=== PATIENT | female | born 1940 | race Caucasian/White ===

== ENCOUNTER 2017-03-10 09:14 | Inpatient (IN) | payer OTHER ==
[2017-02-24 10:30] VITALS: BMI 37.0
--- NOTE | 2017-02-24 11:12 | PAT Medication Instructions ---
Service Date Feb 24, 2017. Current Home Medication List Acetaminophen (Tylenol), 2 TAB PO DAILY PRN for Pain Aspirin (Aspirin Ec), 81 MG PO QAM Calcium/Vitamin D (Os-Lee 500 Plus D), 1 TAB PO QAM Celecoxib (CeleBREX), 1 CAP PO BID PRN for Pain Levothyroxine Sodium (Levothyroxine Sodium), 1 TAB PO QAM Metoprolol Succ (Toprol Xl) (Toprol-Xl), 25 MG PO BID Mirabegron (Myrbetriq Er), 25 MG PO QPM Ondansetron Hcl (Zofran), 8 MG PO Q8 PRN for Nausea Potassium Chloride (Micro-K Ext Rel), 10 MEQ PO QAM Telmisartan/Hctz (Micardis Hct 80MG/12.5MG), 1 TAB PO QAM Medication Instructions For Your Scheduled Surgery - Check with surgeon for instructions: Celecoxib (CeleBREX), 1 CAP PO BID PRN for Pain - Hold the following medications the morning of surgery: Telmisartan/Hctz (Micardis Hct 80MG/12.5MG), 1 TAB PO QAM Potassium Chloride (Micro-K Ext Rel), 10 MEQ PO QAM - Take the following medications the morning of surgery with a sip of water: Acetaminophen (Tylenol), 2 TAB PO DAILY PRN for Pain (if needed) Aspirin (Aspirin Ec), 81 MG PO QAM Levothyroxine Sodium (Levothyroxine Sodium), 1 TAB PO QAM Metoprolol Succ (Toprol Xl) (Toprol-Xl), 25 MG PO BID Ondansetron Hcl (Zofran), 8 MG PO Q8 PRN for Nausea (if needed) - Take the following medications as scheduled the night before surgery: Calcium/Vitamin D (Os-Lee 500 Plus D), 1 TAB PO QAM Metoprolol Succ (Toprol Xl) (Toprol-Xl), 25 MG PO BID Mirabegron (Myrbetriq Er), 25 MG PO QPM Ondansetron Hcl (Zofran), 8 MG PO Q8 PRN for Nausea (if needed) Acetaminophen (Tylenol), 2 TAB PO DAILY PRN for Pain (if needed) If you have any questions please call us at [phone] or [phone] or [phone]
--- NOTE | 2017-02-24 12:12 | DIAGNOSTIC IMAGING REPORT ---
CHEST PREADMISSION(PA/LAT) CLINICAL HISTORY: Preoperative evaluation. COMPARISON STUDY: No previous studies for comparison. FINDINGS: Lung volumes are normal normal. No pneumothorax or pleural effusion is present. There is slight elevation/eventration of the right hemidiaphragm. Mild interstitial thickening, greater within the right lung, is noted. There is no consolidation to suggest pneumonia and there is no evidence of pulmonary edema. Mild cardiomegaly is noted. There is prominence of the aortic knob. IMPRESSION: 1. No acute cardiopulmonary findings. 2. Mild interstitial thickening, greater within the right lung. The findings are likely chronic and may reflect interstitial lung disease. 3. Mild cardiomegaly. 4. Prominence of the aortic knob which could be due to vessel tortuosity or dilatation. Electronically signed by: Hunter Moreira M.D. 02/24/2017 12:11 PM Dictated Date/Time: 02/24/2017 12:09 PM
[2017-02-24 12:17] LABS: BASO % 0.3 %; BASO ABS # 0.02 K/uL (0-0.2); COMPLETE YES; EOS % 3.4 %; HEMATOCRIT 44.9 % (37-47); IG% 0.1 %; LYMPH % 30.3 %; LYMPH ABS # 2.41 K/uL (1.2-3.4); MEAN CELL VOLUME 92.6 fL (80-100); MEAN CORPUSCULAR HEMOGLOBIN 31.1 pg (25-34); MEAN CORPUSCULAR HGB CONC 33.6 g/dl (32-36); MEAN PLATELET VOLUME 10.1 fL (7.4-10.4); MONO % 5.9 %; PLATELET COUNT 270 K/uL (130-400); RED BLOOD COUNT 4.85 M/uL (4.2-5.4); WHITE BLOOD COUNT 7.96 K/uL (4.8-10.8)
[2017-02-24 12:25] LABS: URINE APPEARANCE CLEAR (CLEAR); URINE BILIRUBIN NEG (NEG); URINE COLOR YELLOW; URINE NITRITE NEG (NEG); URINE SPECIFIC GRAVITY 1.011 (1.000-1.030); UROBILINOGEN NEG (NEG)
[2017-02-24 12:29] LABS: PARTIAL THROMBOPLASTIN RATIO 1.1; PROTHROMBIN TIME (PATIENT) 10.3 SECONDS (9.0-12.0)
[2017-02-24 12:32] LABS: MANUAL MICROSCOPIC REQUIRED? NO; REVIEW REQ? NO
[2017-02-24 12:53] LABS: BUN/CREATININE RATIO 19.2 (10-20); CALCIUM 9.5 mg/dl (8.5-10.1); CREATININE 1.1 mg/dl (0.60-1.20); POTASSIUM 4.2 mmol/L (3.5-5.1)
[2017-02-24 13:07] LABS: ESTIMATED AVERAGE GLUCOSE 128 mg/dl; HA1C FLAG Normal (Normal)
--- NOTE | 2017-03-09 10:09 | HISTORY & PHYSICAL EXAMINATION ---
DATE OF ADMISSION: 03/10/2017 CHIEF COMPLAINT: Left knee pain. HISTORY OF PRESENT ILLNESS: The patient is a 76-year-old female seen and evaluated in our office for her left knee osteoarthritis. She has been treated for her left knee by her primary care physician. She was essentially referred to us for consideration for total knee arthroplasty. Her x-rays demonstrate end-stage osteoarthritis and the decision was made to proceed with left total knee arthroplasty. PAST MEDICAL HISTORY: Hypertension, hypothyroidism, osteoarthritis, obesity. PAST SURGICAL HISTORY: Appendectomy, hysterectomy, cataract surgery. MEDICATIONS: Myrbetriq 25 mg daily, levothyroxine 75 mcg daily, Micardis HCT 80/12.5 daily, Advil p.r.n., metoprolol 25 mg twice daily, aspirin 81 mg daily, KCl 10 mEq daily. ALLERGIES: STATINS CAUSE MYALGIAS. SOCIAL HISTORY AND REVIEW OF SYSTEMS: Noncontributory. PHYSICAL EXAMINATION: GENERAL: Well-nourished, well-developed elderly female who appears her stated age. HEAD, EYES, EARS, NOSE, AND THROAT: Normocephalic, atraumatic, extraocular movements intact, oropharynx pink and moist. NECK: Supple without adenopathy. LUNGS: Clear to auscultation bilaterally. HEART: Regular rate and rhythm. ABDOMEN: Soft, nontender, nondistended, obese. EXTREMITIES: The upper extremities are within normal limits. The left knee has a varus alignment. She complains primarily of medial compartment pain. Her range of motion from 0-120 degrees. X-RAYS: X-rays were reviewed. She has a varus aligned knee. She has tricompartmental disease. She has severe medial compartment DJD with complete loss of the joint space, osteophyte formation. She has moderate degenerative change about the patellofemoral joint with osteophyte formation as well. ASSESSMENT: Left knee degenerative joint disease. PLAN: Risks versus benefits were discussed. Consent was obtained. The patient's primary care physician is Dr. Monterroso. Will proceed with left total knee arthroplasty upon preoperative workup and medical clearance.
[~2017-03-10] VITALS: Ht 157.5 cm; Wt 92.3 kg
[2017-03-10] VITALS (9 sets, daily range): BP systolic 122–178; BP diastolic 56–107; PULSE 64–90; TEMP 36.5–36.9; O2SAT 92–97; Ht 157.5 cm; Wt 92.3 kg
[2017-03-10] MEDS: TRANEXAMIC ACID INJ 1,000 MG in SODIUM CHLORIDE 0.9% 100ML 100 ML IV SCH ×2 (06:30→10:33)
--- NOTE | 2017-03-10 07:25 | History & Physical Bridge Note ---
H&P Re-Evaluation Bridge Note: I have examined the patient, reviewed the History & Physical and in the interval since the performance of the History & Physical I have noted the following changes of clinical significance: No changes noted
[~2017-03-10 09:14] MED LIST: ACET-1256 PO; ACETAMINOPHEN 500 MG TAB PO SCH; ASPI81TA28 PO; CALC500C70 PO; CEFAZOLIN 2000 MG/60 ML D5W 60 ML IV SCH; CLB/200 PO; CeleBREX 200 MG CAP PO SCH; DEXAMETHASONE 4 MG TAB PO SCH; FAMOTIDINE 20 MG TAB PO SCH; GABAPENTIN 300 MG CAP PO SCH; LACTATED RINGER'S 1000ML 1,000 ML IV SCH; LACTATED RINGER'S 1000ML 500 ML IV ONE; LEVO75TA5 PO; METO25TA3 PO; METOCLOPRAMIDE HCL 10 MG TAB PO SCH; MIRA100T PO; ONDA8TAB6 PO; POTA10CA28 PO; ROPIVACAINE 5MG/ML 30 ML 150 MG, BUPIVACAINE/EPINEPHR 0.5% MPF 30 ML, KETOROLAC TROMETH... INFIL SCH; TELM80TA4 PO
[2017-03-10] MEDS ORDERED: MIDAZOLAM HCL 1 MG/ML 2ML VIAL ONE (09:23)
[2017-03-10] MEDS ORDERED: FENTANYL CITRATE INJ 50 MCG/1 ML 2 ML VIAL ONE (09:23)
[2017-03-10] MEDS ORDERED: FLUMAZENIL 0.1 MG/1 ML 10 ML VIAL IV PRN (10:30)
[2017-03-10] MEDS ORDERED: FENTANYL CITRATE INJ 50 MCG/1 ML 2 ML VIAL IV PRN (10:30)
[2017-03-10] MEDS ORDERED: PHENYLEPHRINE 100MCG/ML 5ML SYR IV PRN (10:30)
[2017-03-10] MEDS ORDERED: ONDANSETRON INJ 2 MG/ML 2 ML VIAL IV PRN (10:30)
[2017-03-10] MEDS ORDERED: EpHEDrine SULFATE INJ 50 MG/ML AMP IV PRN (10:30)
[2017-03-10] MEDS ORDERED: NALOXONE HCL 0.4 MG/1 ML VIAL/CARP IV PRN (10:30)
[2017-03-10] MEDS ORDERED: MEPERIDINE HCL 25 MG/ML CARP IV PRN (10:30)
[2017-03-10] MEDS ORDERED: LABETALOL HCL IV 5 MG/ML 20ML IV PRN (10:30)
[2017-03-10] MEDS ORDERED: ATROPINE SULFATE 0.1 MG/ML 5ML SYR IV PRN (10:30)
[2017-03-10] MEDS ORDERED: HYDROmorphone INJ 2 MG/ML SYR/VIAL IV PRN (10:30)
[2017-03-10] MEDS ORDERED: BACITRACIN 50000 UNIT VIAL ONE (10:34)
[2017-03-10] MEDS ORDERED: ORTHO JOINT ANESTHETIC ONE (10:34)
[2017-03-10] MEDS ORDERED: POVIDONE-IODINE OP SOLN 30 ML BTL ONE (10:34)
[2017-03-10] MEDS ORDERED: EpINEphrine INJ 1MG/ML AMP 1 MG/ML AMP ONE (10:42)
[2017-03-10] MEDS ORDERED: BUPIVACAINE 0.5 % 5 MG/1 ML PF 10ML VIAL ONE (10:42)
[2017-03-10] MEDS ORDERED: BUPIVACAINE 0.25% 30 ML VIAL ONE (10:42)
[2017-03-10] MEDS ORDERED: PROPOFOL IV EMULSION 10 MG/ML 20 ML VIAL IV ONE (11:33)
[2017-03-10] MEDS ORDERED: ALUMINUM/MAGNESIUM/SIMETH (MAALOX MAX) 30 ML UDC PO PRN (13:00)
[2017-03-10] MEDS ORDERED: ZOLPIDEM TARTRATE 5 MG TAB PO PRN (13:00)
[2017-03-10] MEDS ORDERED: MAGNESIUM HYDROXIDE SUSP 30 ML UDC PO PRN (13:00)
[2017-03-10] MEDS ORDERED: OXYCODONE HCL IR 5 MG TAB (IMMEDIATE RELEASE) PO PRN (13:00)
[2017-03-10] MEDS ORDERED: MoRPHine SULFATE 2 MG/ML CARP IV PRN ×2 (13:00→14:15)
[2017-03-10] MEDS ORDERED: LABETALOL HCL IV 5 MG/ML 20ML IV ONE ×2 (13:20→13:46)
--- NOTE | 2017-03-10 13:54 | OPERATIVE REPORT ---
DATE OF OPERATION: 03/10/2017 PREOPERATIVE DIAGNOSIS: Osteoarthritis, left knee. POSTOPERATIVE DIAGNOSIS: Osteoarthritis, left knee. PROCEDURE: Left total knee arthroplasty. SURGEON: Dr. Cooper. VP [employer]: Vitaily Medina PA-C ANESTHESIA: Spinal. COMPLICATIONS: None. IMPLANTS USED: Femoral size 4, tibia size 3, tibial poly 13, and patella size 36. OPERATION AND FINDINGS: Following induction of spinal anesthesia, the patient's left leg was prepped and draped in the usual sterile manner. Limb was exsanguinated with an Esmarch bandage and tourniquet was inflated to 350 mmHg. A longitudinal incision was made anteriorly. Subcutaneous tissue was sharply dissected. Electrocautery was used for hemostasis. Prepatellar bursa was incised and median parapatellar incision was performed. Patella was everted and the knee was flexed. Fat pad was removed to aid in visualization and the anterior and posterior cruciate ligaments were removed. The medial face of the tibia was cleared of soft tissue first with a Bovie and a Duke elevator. This tissue was retracted posteriorly using a blunt Hohmann. A Up retractor was used to expose the synovium above on the anterior aspect of the femur and this was removed down to bone. The PSI guide was placed on the distal femur and two pins were placed anteriorly and kept in position and two additional pins were placed distally and removed. The distal femoral cutting block was placed in position and the distal femoral cut was used in the +0 setting. Next, the cutting block was removed and the femoral 4 block was placed in the distal end of the femur. Care was taken to ensure appropriate external rotation and feeler gauge was used to ensure no notching would occur. The femoral block was centered on the distal femur and in the medial and lateral direction and was fixed using two bone screws. The gold pins were then removed. The oscillating saw was used to create the bone cuts and the distal femoral cutting block was removed and the reciprocating saw was used to further trim the femoral cuts as well as a deep in the area for the trochlear groove. Next, posterior condyle remnants were removed. Following this, a meniscal clamp and knife were utilized to remove the anterior portion of both medial and lateral meniscus. The proximal tibia PSI guide was placed into position and the proximal tibial cutting guide was screwed into position. The extra medullary alignment guide was utilized to ensure appropriate alignment. The proximal tibia was cut and the proximal tibial cutting block was removed and this bone fragment was removed. The appropriate guide was used to perform the notch cut on the distal femur and a lamina controller repairer and tester and a cochlear knife were utilized to finish both medial and lateral meniscectomies to remove any remnants of the posterior or anterior cruciate ligaments. Following this, the distal femoral component was impacted into position and blunt Julissa was used to sublux the tibia anteriorly. The proximal tibia was sized and a 3 tibial tray was chosen as the size to be used. This was put into position and appropriate external rotation and a double check with extramedullary alignment guide was performed. The canal for the tibial stem was prepared first with a 17 mm drill and then the punch and a mallet and the trial tibial poly was placed. A 13 was chosen the size to be used. It was brought to extension and the patella was prepared with the patellar reamer. A 36 component was chosen the size to be used. The trial component was placed and knee was taken through a full range of motion and there was found to be no lateral subluxation of the tibia. No lateral release was required. The trials were all removed. The final components were obtained and assembled. Cement was mixed. The knee was thoroughly irrigated and the ortho mix was injected about the knee joint. The final components were cemented into position. After thoroughly suctioning and drying the bone ends, all excess cement was removed. The knee was held in extension while the cement hardened. The wound was irrigated and closed over a Hemovac drain. #1 Vicryl was used to close the extensor mechanism. Subcutaneous tissues closed using 0 Dexon. Skin was closed with alanis. Sterile dressing of Adaptic, 4 x 4's, sterile Webril, and Balaji was applied. The patient tolerated the procedure well. Due to the complex nature of the procedure, the entire surgery was performed with the operational assistance of Vitaliy Medina PA-C. The asset protection assistant, under direct supervision, was involved in the actual performance of all aspects of the surgical procedure including hemostasis, tissue retraction and incision, instrument management, patient positioning, and wound closure. DISPOSITION: Recovery room stable. I attest to the content of the Intraoperative Record and any orders documented therein. Any exception s are noted below.
--- NOTE | 2017-03-10 14:13 | DIAGNOSTIC IMAGING REPORT ---
LEFT KNEE 2 VIEWS History: Left total knee arthroplasty. Degenerative arthritis. Postop. FINDINGS: The patient is status post a left total knee arthroplasty. The hardware is intact. No fracture or dislocation. Surgical drains are in place. IMPRESSION: Left total knee arthroplasty. No evidence for hardware complication. Electronically signed by: Ze Cotto M.D. 03/10/2017 2:11 PM Dictated Date/Time: 03/10/2017 2:10 PM
[2017-03-10] MEDS ORDERED: MoRPHine SULFATE 4 MG/ML 1 ML CARP\\VIAL IV PRN (14:15)
[2017-03-10] MEDS ORDERED: MoRPHine SULFATE 10 MG/ML CARP/VIAL IV PRN (14:15)
--- NOTE | 2017-03-10 14:43 | Anesthesiology Progress Note ---
Anesthesia Post Op Note Date & Time Mar 10, 2017 at 14:42 Vital Signs Pain Intensity: 0 Vital Signs Past 12 Hours Date Time Temp Pulse Resp B/P (MAP) Pulse Ox O2 Delivery O2 Flow Rate FiO2 03/10/17 14:34 66 15 03/10/17 14:34 65 15 95 03/10/17 14:31 142/73 03/10/17 14:29 69 19 95 03/10/17 14:29 70 19 03/10/17 14:26 136/73 03/10/17 14:24 69 19 96 03/10/17 14:24 69 19 03/10/17 14:21 155/79 03/10/17 14:19 68 21 03/10/17 14:19 68 21 95 03/10/17 14:18 70 15 96 03/10/17 14:18 69 15 03/10/17 14:16 141/89 03/10/17 14:13 69 18 03/10/17 14:13 69 18 95 03/10/17 14:11 153/84 03/10/17 14:09 37.1 03/10/17 14:08 68 15 95 03/10/17 14:08 68 15 03/10/17 14:07 68 14 03/10/17 14:07 69 14 95 03/10/17 14:06 158/70 03/10/17 14:02 67 18 03/10/17 14:02 66 18 96 03/10/17 14:01 164/90 03/10/17 13:57 67 15 96 03/10/17 13:57 67 15 03/10/17 13:56 165/92 03/10/17 13:54 70 16 03/10/17 13:54 70 16 03/10/17 13:54 72 16 97 03/10/17 13:54 72 16 97 03/10/17 13:51 157/83 03/10/17 13:51 157/83 03/10/17 13:49 67 16 97 03/10/17 13:49 68 16 03/10/17 13:49 68 16 03/10/17 13:49 67 16 97 03/10/17 13:48 67 22 03/10/17 13:48 67 22 95 03/10/17 13:46 157/82 03/10/17 13:43 66 13 97 03/10/17 13:43 66 13 03/10/17 13:41 174/95 03/10/17 13:38 65 15 97 03/10/17 13:38 67 15 03/10/17 13:36 160/91 03/10/17 13:33 69 23 96 03/10/17 13:33 69 23 03/10/17 13:32 66 13 98 03/10/17 13:32 65 13 03/10/17 13:31 170/97 03/10/17 13:27 64 18 03/10/17 13:27 64 18 100 03/10/17 13:26 167/86 03/10/17 13:22 66 15 03/10/17 13:22 69 15 99 03/10/17 13:21 178/91 03/10/17 13:18 182/94 03/10/17 13:17 64 13 03/10/17 13:17 64 13 99 03/10/17 13:16 178/100 03/10/17 13:14 62 14 99 03/10/17 13:14 62 14 03/10/17 13:11 175/96 03/10/17 13:09 67 20 03/10/17 13:09 96 20 99 03/10/17 13:06 164/81 03/10/17 13:04 64 12 100 03/10/17 13:04 64 12 03/10/17 13:02 154/80 03/10/17 12:59 66 20 03/10/17 12:59 68 20 100 03/10/17 12:54 36.3 65 14 157/79 97 Oxymask 10 03/10/17 09:53 36.6 71 18 178/107 95 Room Air Notes Mental Status: alert / awake / arousable, participated in evaluation Pt Amnestic to Procedure: Yes Nausea / Vomiting: adequately controlled Pain: adequately controlled Airway Patency, RR, SpO2: stable & adequate BP & HR: stable & adequate Hydration State: stable & adequate Neuraxial Anesthesia: was administered, sensory block is resolving Anesthetic Complications: no major complications apparent
[2017-03-10] MEDS: ONDANSETRON INJ 2 MG/ML 2 ML VIAL IV PRN (16:16)
[2017-03-10] MEDS: D5W AND 1/2NSS + 20MEQ KCL 1,000 ML IV SCH (16:56)
[2017-03-10] MEDS: CEFAZOLIN IV 2,000 MG in DEXTROSE 5% 50ML 50 ML IV SCH (18:27)
[2017-03-10] MEDS: FERROUS GLUCONATE 324 MG TAB PO SCH (18:27)
[2017-03-10] MEDS: METOCLOPRAMIDE HCL INJ 5 MG/ML 2 ML VIAL IV PRN (19:19)
[2017-03-10] MEDS: KETOROLAC TROMETHAMINE 15 MG/ML VIAL IV. SCH (20:19)
[2017-03-10] MEDS: ASPIRIN 81 MG ECTAB PO SCH (20:45)
[2017-03-10] MEDS: DOCUSATE SODIUM 100 MG CAP PO SCH (20:45)
[2017-03-10] MEDS: OXYCODONE HCL 10 MG TABCR (OXYCONTIN) PO SCH (20:46)
[2017-03-10] MEDS: METOPROLOL SUCC 25MG EXT REL TAB PO SCH (20:48)
[2017-03-10] MEDS: ACETAMINOPHEN 500 MG TAB PO SCH (22:16)
[2017-03-11] VITALS (8 sets, daily range): BP systolic 128–206; BP diastolic 68–83; PULSE 58–74; TEMP 36.6–37; O2SAT 94–97
[2017-03-11] MEDS: ONDANSETRON INJ 2 MG/ML 2 ML VIAL IV PRN ×2 (00:27→07:34)
[2017-03-11] MEDS: CEFAZOLIN IV 2,000 MG in DEXTROSE 5% 50ML 50 ML IV SCH (01:54)
[2017-03-11] MEDS: D5W AND 1/2NSS + 20MEQ KCL 1,000 ML IV SCH ×2 (01:54→12:21)
[2017-03-11] MEDS: KETOROLAC TROMETHAMINE 15 MG/ML VIAL IV. SCH ×3 (01:55→13:59)
[2017-03-11] MEDS: METOCLOPRAMIDE HCL INJ 5 MG/ML 2 ML VIAL IV PRN (02:07)
[2017-03-11] MEDS: ACETAMINOPHEN 500 MG TAB PO SCH ×2 (05:57→13:59)
[2017-03-11] MEDS ORDERED: LEVOTHYROXINE 75 MCG TAB PO SCH (06:00)
[2017-03-11 07:00] LABS: HEMATOCRIT 37.7 % (37-47); MEAN CELL VOLUME 94.3 fL (80-100); MEAN CORPUSCULAR HGB CONC 32.9 g/dl (32-36); MEAN PLATELET VOLUME 9.3 fL (7.4-10.4); PLATELET COUNT 245 K/uL (130-400); WHITE BLOOD COUNT 14.65 K/uL (4.8-10.8)
[2017-03-11 07:27] LABS: BUN/CREATININE RATIO 22.7 (10-20); CALCIUM 8.2 mg/dl (8.5-10.1); CREATININE 1.1 mg/dl (0.60-1.20); POTASSIUM 4.3 mmol/L (3.5-5.1)
[2017-03-11] MEDS ORDERED: DEXAMETHASONE INJ 10 MG in SYRINGE 0 ML IV ONE (07:30)
[2017-03-11] MEDS: FERROUS GLUCONATE 324 MG TAB PO SCH ×2 (08:30→13:14)
[2017-03-11] MEDS: METOPROLOL SUCC 25MG EXT REL TAB PO SCH (08:51)
[2017-03-11] MEDS: ASPIRIN 81 MG ECTAB PO SCH (08:52)
[2017-03-11] MEDS: DOCUSATE SODIUM 100 MG CAP PO SCH (08:52)
[2017-03-11] MEDS: OXYCODONE HCL 10 MG TABCR (OXYCONTIN) PO SCH (08:52)
[2017-03-11] MEDS ORDERED: HYDROCHLOROTHIAZIDE 25 MG TAB PO SCH (09:00)
[2017-03-11] MEDS ORDERED: MULTIVITAMIN TAB PO SCH (09:00)
[2017-03-11] MEDS ORDERED: TELMISARTAN 40 MG TAB PO SCH (09:00)
[2017-03-11] MEDS ORDERED: PANTOprazole SOD 40 MG TAB PO SCH (09:00)
--- NOTE | 2017-03-11 09:56 | Orthopedic Progress Note ---
Orthopedic Progress Note Date of Service Mar 11, 2017. Subjective Post OP Day: 1 Reports: nausea / vomiting, Denies: chest pain, SOB, light headedness, calf pain Additional Notes: Pt with N/V earlier this AM. Eating breakfast now. Pain controlled. Hoping to go home today if she is doing well and nausea has resolved. Objective calves soft nontender, N/V intact, dressing C/D/I, A&O x3, toes mobile Date Time Temp Pulse Resp B/P (MAP) Pulse Ox O2 Delivery O2 Flow Rate FiO2 03/11/17 08:48 58 171/79 (109) 03/11/17 07:30 Room Air 03/11/17 07:00 36.6 62 19 177/83 (114) 97 Room Air 03/11/17 03:44 37.0 72 16 128/71 (90) 95 Room Air 03/11/17 00:30 Room Air 03/10/17 23:57 36.8 64 18 122/56 (78) 92 Room Air 03/10/17 20:48 70 135/78 (97) 03/10/17 19:22 36.5 71 20 159/89 (112) 92 Room Air 03/10/17 18:30 36.6 78 18 167/96 (119) 97 Room Air 03/10/17 16:30 36.5 66 18 148/81 (103) 96 Nasal Cannula 2.0 03/10/17 16:15 159/101 (120) 03/10/17 16:00 36.6 68 16 177/92 (120) 97 Nasal Cannula 2.0 03/10/17 15:30 36.9 90 18 151/90 (110) 95 Nasal Cannula 2.0 03/10/17 15:30 Nasal Cannula 2.0 03/10/17 15:30 Nasal Cannula 2.0 03/10/17 15:15 36.1 72 15 151/86 96 Nasal Cannula 2 03/10/17 15:00 72 16 114/93 97 Nasal Cannula 2 03/10/17 14:46 140/72 03/10/17 14:45 71 18 03/10/17 14:45 70 18 95 03/10/17 14:40 71 18 95 03/10/17 14:40 71 18 03/10/17 14:35 64 13 95 9/14/17 14:35 63 13 9/14/17 14:34 66 15 /14/17 14:34 65 15 95 14/17 14:31 142/73 14/17 14:29 69 19 95 14/17 14:29 70 19 /14/17 14:26 136/73 14/17 14:24 69 19 96 14/17 14:24 69 19 14/17 14:21 155/79 14/17 14:19 68 21 14/17 14:19 68 21 95 14/17 14:18 70 15 96 14/17 14:18 69 15 14/17 14:16 141/89 14/17 14:13 69 18 14/17 14:13 69 18 95 14/17 14:11 153/84 14/17 14:09 37.1 03/10/17 14:08 68 15 95 14/17 14:08 68 15 14/17 14:07 68 14 17 14:07 69 14 95 14/17 14:06 158/70 14/17 14:02 67 18 14/17 14:02 66 18 96 14/17 14:01 164/90 14/17 13:57 67 15 96 14/17 13:57 67 15 14/17 13:56 165/92 14/17 13:54 70 16 14/17 13:54 70 16 14/17 13:54 72 16 97 14/17 13:54 72 16 97 14/17 13:51 157/83 14/17 13:51 157/83 14/17 13:49 67 16 97 14/17 13:49 68 16 14/17 13:49 68 16 14/17 13:49 67 16 97 14/17 13:48 67 22 14/17 13:48 67 22 95 14/17 13:46 157/82 14/17 13:43 66 13 97 /14/17 13:43 66 13 14/17 13:41 174/95 14/17 13:38 65 15 97 14/17 13:38 67 15 03/10/17 13:36 160/91 03/10/17 13:33 69 23 96 03/10/17 13:33 69 23 03/10/17 13:32 66 13 98 03/10/17 13:32 65 13 03/10/17 13:31 170/97 03/10/17 13:27 64 18 03/10/17 13:27 64 18 100 03/10/17 13:26 167/86 03/10/17 13:22 66 15 03/10/17 13:22 69 15 99 03/10/17 13:21 178/91 03/10/17 13:18 182/94 03/10/17 13:17 64 13 03/10/17 13:17 64 13 99 03/10/17 13:16 178/100 03/10/17 13:14 62 14 99 03/10/17 13:14 62 14 03/10/17 13:11 175/96 03/10/17 13:09 67 20 03/10/17 13:09 96 20 99 03/10/17 13:06 164/81 03/10/17 13:04 64 12 100 03/10/17 13:04 64 12 03/10/17 13:02 154/80 03/10/17 12:59 66 20 03/10/17 12:59 68 20 100 03/10/17 12:54 36.3 65 14 157/79 97 Oxymask 10 03/10/17 09:53 36.6 71 18 178/107 95 Room Air Laboratory Results 24 Hours: Test 03/11/17 06:36 Hematocrit 37.7 % Hemoglobin 12.4 g/dL Assessment & Plan Assessment: POD 1 s/p Left TKA N/V Plan: PT/OT antiemetics for nausea Planning for Home Health PT Possible dc to home today if nausea resolves and progressing with PT. Inhouse Planning Pain Management: Celebrex, Oxycontin, Morphine, PO Tylenol, Oxy IR DVT Prophylaxis: TEDs, SCDs, ASA Discharge Planning Discharge Planning: home with home health
--- NOTE | 2017-03-11 10:02 | Discharge Instructions ---
Discharge Instructions Date of Service Mar 11, 2017. Admission Reason for Admission: Left Knee Osteoarthritis Discharge Discharge Diagnosis / Problem: Left Knee Djd Discharge Goals Goal(s): Decrease discomfort, Improve function Activity Recommendations Activity Limitations: per Instructions/Follow-up section Weightbearing Status: Left weightbearing (as tolerated) . Instructions / Follow-Up Instructions / Follow-Up ACTIVITY RECOMMENDATIONS: SELF CARE INSTRUCTIONS AFTER TOTAL KNEE REPLACEMENT A. You may need to continue a physical therapy program after discharge from the hospital. There are several options available to you. Your doctor will assist you in selecting the best one for you. 1. An out-patient facility 2 to 3 times a week for therapy or home therapy. 2. Continue working on all exercises taught to you in the hospital. Your goals should be to increase bending of your knee to 90 degrees and beyond and to fully straighten your knee. B. You may progress at your own pace from walking with a walker or crutches to a cane; then to no assistive devices. C. Make walking a part of your daily routine. Be up as much as comfortable with rest periods throughout the day. Rest with leg elevation is very important. Use the ice wrap frequently for the first 3-4 weeks. D. There are no restrictions on activities. You may ride in a car, shop, participate in equal opportunity specialist and all social activities. E. Wear the long elastic stockings (KIMBERLY hose) 20 hours a day for 2 weeks after surgery. They can be removed several times a day for laundering and for a bath. F. You may shower, no tub baths until cleared by your doctor. SPECIAL CARE INSTRUCTIONS: VERY IMPORTANT TO READ AND REVIEW A. There are a few signs you need to watch for after you are home. Call [facility] if you notice any of the followin. Increased severe knee pain. Some pain is expected especially when you exercise. 2. Increased swelling in your leg or knee; pain or swelling of the calf muscle in either lower leg. 3. Any fluid drainage from the incision. 4. Shortness of breath or chest pain. B. Please call [facility] at if you have any concerns or questions about your operation or recovery. The doctor or his nurse will return your call promptly. C. You must take antibiotics before dental work, bladder, bowel or other surgery. Your doctor will provide you with a permanent care to carry describing this precaution. IMPORTANT: * REMEMBER TO TAKE ASPIRIN, 81 MG, TWICE DAILY FOR 4 WEEKS UNLESS OTHERWISE DIRECTED. THIS IS YOUR BLOOD THINNER. * HIGH RISK PATIENTS MAY BE PRESCRIBED A STRONGER BLOOD THINNER. THIS WILL BE PROVIDED AT DISCHARGE. * CALL IF INCREASED PAIN, REDNESS, DRAINAGE OR FEVER GREATER THAT 101. * WEAR KIMBERLY HOSE 20 HOURS PER DAY FOR 2 WEEKS. * Silverlon- This is a large adhesive bandage that contains silver ions. This helps your incision heal by fighting off bacteria and protecting it from the outside environment. You are permitted to shower with this dressing. This will remain on your incision for 7 days and then should be removed. Some visible blood or drainage through the dressing window is normal. If there is significant drainage or leaking noted before the 7 days notify your doctor's office immediately. Once removed, keep incision clean and dry. If there is any drainage or redness noted, please call your surgeon. You also have the Zip closure system on your wound. This will remain on your wound for 2 weeks and will be removed in the office. Please keep the wound covered with an ABD type gauze dressing (Or monika wrap if the wound is not draining) until seen in the office. Call the office with any questions at . FOLLOW UP VISIT: If appointment is not already scheduled: Please call [facility] to make a follow-up appointment for 2 weeks after your surgery at . Current Hospital Diet Patient's current hospital diet: Regular Diet Discharge Diet Recommended Diet: Regular Diet Procedures Procedures Performed: Left total knee arthroplasty Pending Studies Studies pending at discharge: no Laboratory Results Hemoglobin A1c Test 02/24/17 11:23 Range/Units Estimated Average Glucose 128 mg/dl Hemoglobin A1c 6.1 H 4.5-5.6 % Medical Emergencies . Who to Call and When: Medical Emergencies: If at any time you feel your situation is an emergency, please call 911 immediately. . Non-Emergent Contact Non-Emergency issues call your: Surgeon Call Non-Emergent contact if: temperature is above 101.5, your pain is not controlled, your pain is worsening, wound has increased drainage, wound has increased redness . "Provider Documentation" section prepared by Suhail Dorado. . VTE Core Measure Inpt VTE Proph given/why not?: Other Anticoagulation, T.E.Evelyn Cardenas, SCD's [place] Drug Monitoring Program Search Results: patient reviewed within database, no issues identified
[2017-03-11] MEDS ORDERED: RXC5 PO (13:29)
[2017-03-11] MEDS ORDERED: ACET-1256 PO (13:29)
[2017-03-11] MEDS ORDERED: ASPI81TA28 PO (13:29)
[2017-03-11] MEDS ORDERED: OXYSR10 PO (13:29)
--- NOTE | 2017-03-11 13:31 | Medical Consult ---
Consultation Date of Consultation: Mar 11, 2017. Attending Physician: Bladimir Cooper M.D. Reason for Consultation: HTN History of Present Illness 76 y/o F who was admitted on 03/10 s/p L TKA with Dr. Cooper. Pt has been doing quite well postop. She has been ambulating today with a walker and minimal assistance other than her IV pole. She has been eating well and is hoping for d/c later today. She states that she did not take her micardis the day prior to OR or the day of her surgery. She states that when her PCP tried to switch her micardis to atenolol a few years ago, her BP was quite elevated. She takes her BP at home daily and keeps a record of this. She is generally around 120 systolic and was up until her surgery. Pt denies fever, SOB, chest pain, abd pain, n/v/c/d, LE pain or swelling. Nursing states that pt's BP this AM was elevated to the 170s, however she noted that the cuff was not fitting well. She found a larger cuff and BP was 150s. Past Medical/Surgical History HTN Hypothyoird OA Overactive bladder Family History Denies FH of heart issues Social History Smoking Status: Never Smoker Alcohol Use: none Drug Use: none Allergies Coded Allergies: Atenolol (Verified Adverse Reaction, Unknown, HIGH BLOOD PRESSURE, 03/10/17 ) Oxybutynin (Verified Adverse Reaction, Unknown, VISION DISTURBANCES, ) Statins (Verified Adverse Reaction, Unknown, ACHY JOINTS, 03/10/17) Current Inpatient Medications Current Inpatient Medications Medications (Trade) Dose Ordered Sig/Avery Route Start Time Stop Time Status Last Admin Dose Admin Potassium Chloride/Dextrose/ Sod Cl 1,000 ml @ 100 mls/hr Q10H IV 03/10/17 16:00 03/11/17 15:59 03/11/17 12:21 100 MLS/HR Ketorolac Tromethamine (Toradol Inj) 15 mg Q6H IV. 03/10/17 20:00 03/11/17 19:59 03/11/17 08:49 15 MG Celecoxib (CeleBREX CAP) 200 mg BID PO 03/12/17 09:00 04/11/17 08:59 Oxycodone HCl (Roxicodone Immediate Rel Tab) 1 TABLET FOR PAIN RATING... Q4H PRN PO 03/10/17 13:00 03/24/17 12:59 Oxycodone HCl (Oxycontin Tab) 10 mg Q12 PO 03/10/17 21:00 03/24/17 20:59 03/10/17 20:46 10 MG Acetaminophen (Tylenol Tab) 1,000 mg Q8H PO 03/10/17 22:00 04/09/17 21:59 03/11/17 05:57 1,000 MG Magnesium Hydroxide (Milk Of Magnesia Susp) 30 ml Q6H PRN PO 03/10/17 13:00 04/09/17 12:59 Docusate Sodium (coLACE CAP) 100 mg BID PO 03/10/17 21:00 04/09/17 20:59 03/10/17 20:45 100 MG Diphenhydramine HCl (Benadryl Cap) 25 mg Q8H PRN PO 03/10/17 13:00 04/09/17 12:59 Al Hydrox/Mg Hydrox/Simethicone (Maalox Max Susp) 15 ml Q4H PRN PO 03/10/17 13:00 04/09/17 12:59 Zolpidem Tartrate (Ambien Tab) 5 mg HSZ PRN PO 03/10/17 13:00 04/09/17 12:59 Multivitamins (Multivitamin Tab) 1 tab QAM PO 03/11/17 09:00 04/10/17 08:59 Ondansetron HCl (Zofran Inj) 4 mg Q6H PRN IV 03/10/17 13:00 04/09/17 12:59 03/11/17 07:34 4 MG Metoclopramide HCl (Reglan Inj) 10 mg Q6H PRN IV 03/10/17 13:00 04/09/17 12:59 03/11/17 02:07 10 MG Ferrous Gluconate (Ferrous Gluconate Tab) 324 mg TIDM PO 03/10/17 17:45 04/09/17 17:59 03/11/17 13:14 324 MG Pantoprazole Sodium (Protonix Tab) 40 mg QAM PO 03/11/17 09:00 04/10/17 08:59 03/11/17 08:51 40 MG Aspirin (Ecotrin Tab) 81 mg BID PO 03/10/17 21:00 04/09/17 20:59 03/11/17 08:52 81 MG Levothyroxine Sodium (Synthroid Tab) 75 mcg DAILYBB PO 03/11/17 06:00 04/10/17 05:59 03/11/17 05:56 75 MCG Metoprolol Succinate (Toprol Xl Tab) 25 mg BID PO 03/10/17 21:00 04/09/17 20:59 03/10/17 20:48 25 MG Mirabegron (Myrbetriq Er) 25 mg QPM PO 03/11/17 21:00 04/10/17 20:59 Telmisartan (Micardis Tab) 80 mg QAM PO 03/11/17 09:00 04/10/17 08:59 03/11/17 08:50 80 MG Morphine Sulfate (MoRPHine SULFATE INJ) 2 mg Q2HWA PRN IV 03/10/17 14:15 03/24/17 14:14 Morphine Sulfate (MoRPHine SULFATE INJ) 4 mg Q2HWA PRN IV 03/10/17 14:15 03/24/17 14:14 Morphine Sulfate (MoRPHine SULFATE INJ) 6 mg Q2HWA PRN IV 03/10/17 14:15 03/24/17 14:14 Hydrochlorothiazide (Hydrochlorothiazide Tab) 12.5 mg QAM PO 03/11/17 09:00 04/10/17 08:59 03/11/17 08:50 12.5 MG Review of Systems Pertinent positives and negatives reviewed in HPI--all others negative Physical Exam Date Time Temp Pulse Resp B/P (MAP) Pulse Ox O2 Delivery O2 Flow Rate FiO2 03/11/17 12:20 65 156/77 (103) 03/11/17 11:47 73 94 03/11/17 08:48 58 171/79 (109) 03/11/17 07:30 Room Air 03/11/17 07:00 36.6 62 19 177/83 (114) 97 Room Air 03/11/17 03:44 37.0 72 16 128/71 (90) 95 Room Air 03/11/17 00:30 Room Air 03/10/17 23:57 36.8 64 18 122/56 (78) 92 Room Air 03/10/17 20:48 70 135/78 (97) 03/10/17 19:22 36.5 71 20 159/89 (112) 92 Room Air 03/10/17 18:30 36.6 78 18 167/96 (119) 97 Room Air 03/10/17 16:30 36.5 66 18 148/81 (103) 96 Nasal Cannula 2.0 03/10/17 16:15 159/101 (120) 03/10/17 16:00 36.6 68 16 177/92 (120) 97 Nasal Cannula 2.0 03/10/17 15:30 36.9 90 18 151/90 (110) 95 Nasal Cannula 2.0 03/10/17 15:30 Nasal Cannula 2.0 03/10/17 15:30 Nasal Cannula 2.0 03/10/17 15:15 36.1 72 15 151/86 96 Nasal Cannula 2 03/10/17 15:00 72 16 114/93 97 Nasal Cannula 2 03/10/17 14:46 140/72 03/10/17 14:45 71 18 03/10/17 14:45 70 18 95 03/10/17 14:40 71 18 95 03/10/17 14:40 71 18 03/10/17 14:35 64 13 95 03/10/17 14:35 63 13 03/10/17 14:34 66 15 03/10/17 14:34 65 15 95 03/10/17 14:31 142/73 03/10/17 14:29 69 19 95 03/10/17 14:29 70 19 03/10/17 14:26 136/73 03/10/17 14:24 69 19 96 03/10/17 14:24 69 19 03/10/17 14:21 155/79 03/10/17 14:19 68 21 03/10/17 14:19 68 21 95 03/10/17 14:18 70 15 96 03/10/17 14:18 69 15 03/10/17 14:16 141/89 03/10/17 14:13 69 18 03/10/17 14:13 69 18 95 03/10/17 14:11 153/84 03/10/17 14:09 37.1 03/10/17 14:08 68 15 95 03/10/17 14:08 68 15 03/10/17 14:07 68 14 03/10/17 14:07 69 14 95 03/10/17 14:06 158/70 03/10/17 14:02 67 18 03/10/17 14:02 66 18 96 03/10/17 14:01 164/90 03/10/17 13:57 67 15 96 03/10/17 13:57 67 15 03/10/17 13:56 165/92 03/10/17 13:54 70 16 03/10/17 13:54 70 16 03/10/17 13:54 72 16 97 03/10/17 13:54 72 16 97 03/10/17 13:51 157/83 03/10/17 13:51 157/83 03/10/17 13:49 67 16 97 03/10/17 13:49 68 16 03/10/17 13:49 68 16 03/10/17 13:49 67 16 97 03/10/17 13:48 67 22 03/10/17 13:48 67 22 95 03/10/17 13:46 157/82 03/10/17 13:43 66 13 97 03/10/17 13:43 66 13 03/10/17 13:41 174/95 03/10/17 13:38 65 15 97 03/10/17 13:38 67 15 03/10/17 13:36 160/91 03/10/17 13:33 69 23 96 03/10/17 13:33 69 23 03/10/17 13:32 66 13 98 03/10/17 13:32 65 13 03/10/17 13:31 170/97 03/10/17 13:27 64 18 03/10/17 13:27 64 18 100 03/10/17 13:26 167/86 03/10/17 13:22 66 15 03/10/17 13:22 69 15 99 03/10/17 13:21 178/91 General Appearance: no apparent distress, + obese Head: normocephalic, atraumatic Eyes: normal inspection, EOMI ENT: hearing grossly normal Neck: supple Respiratory/Chest: lungs clear, normal breath sounds, no respiratory distress Cardiovascular: regular rate, rhythm, no edema, normal peripheral pulses Abdomen/GI: non tender, soft Extremities/Musculoskelatal: no calf tenderness, no pedal edema Neurologic/Psych: alert, normal mood/affect, oriented x 3 Skin: normal color, warm/dry Laboratory Results Last 24 Hours Test 03/11/17 06:36 White Blood Count 14.65 K/uL Red Blood Count 4.00 M/uL Hemoglobin 12.4 g/dL Hematocrit 37.7 % Mean Corpuscular Volume 94.3 fL Mean Corpuscular Hemoglobin 31.0 pg Mean Corpuscular Hemoglobin Concent 32.9 g/dl RDW Standard Deviation 44.9 fL RDW Coefficient of Variation 13.0 % Platelet Count 245 K/uL Mean Platelet Volume 9.3 fL Sodium Level 136 mmol/L Potassium Level 4.3 mmol/L Chloride Level 103 mmol/L Carbon Dioxide Level 26 mmol/L Anion Gap 7.0 mmol/L Blood Urea Nitrogen 25 mg/dl Creatinine 1.10 mg/dl Est Creatinine Clear Calc Drug Dose 46.0 ml/min Estimated GFR () 56.5 Estimated GFR (Non- 48.7 BUN/Creatinine Ratio 22.7 Random Glucose 143 mg/dl Calcium Level 8.2 mg/dl Assessment & Plan 76 y/o F who was admitted on 03/10 s/p L TKA who I was asked to see for elevated BP with hx of HTN. Elevated BP: Hx of HTN and takes multiple medications for this States her BP is very dependent on micardis, which had been held for OR Reports home BP daily is 120-130s systolic Given this hx, I am hesitant to increase her current doses or add additional medications for the risk of hypoTN and falls, especially postop from knee surgery Pt advised to resume her usual medication regimen and document her BP daily She should f/u with her PCP next week to ensure BP is returning to usual L TKA: as per ortho Overactive bladder: should be noted that myrbetriq can cause elevated BP She has not had this medication during admission Hyperglycemia: A1c is 6.1 and early AM (likely fasting) BS is elevated at 143 PCP should monitor this closely moving forward No hx of DM Additional Copies To Irineo Monterroso D.O.
--- NOTE | 2017-03-11 13:42 | Anesthesiology Progress Note ---
Anesthesia Post Op Note Date & Time Mar 11, 2017 at 13:41 Vital Signs Pain Intensity: 4.0 Vital Signs Past 12 Hours Date Time Temp Pulse Resp B/P (MAP) Pulse Ox O2 Delivery O2 Flow Rate FiO2 03/11/17 12:20 65 156/77 (103) 03/11/17 11:47 73 94 03/11/17 08:48 58 171/79 (109) 03/11/17 07:30 Room Air 03/11/17 07:00 36.6 62 19 177/83 (114) 97 Room Air 03/11/17 03:44 37.0 72 16 128/71 (90) 95 Room Air Notes Mental Status: alert / awake / arousable, participated in evaluation Pt Amnestic to Procedure: Yes Nausea / Vomiting: adequately controlled, improving with treatment Pain: adequately controlled Airway Patency, RR, SpO2: stable & adequate BP & HR: stable & adequate Hydration State: stable & adequate Neuraxial Anesthesia: was administered, sensory block resolved Anesthetic Complications: no major complications apparent
[2017-03-11] MEDS ORDERED: MIRABEGRON ER 25 MG TAB PO SCH (21:00)
[2017-03-12] MEDS ORDERED: CeleBREX 200 MG CAP PO SCH (09:00)
--- NOTE | 2017-03-17 00:16 | DISCHARGE SUMMARY ---
CHIEF COMPLAINT: Left knee pain. Please see complete history and physical examination. HOSPITAL COURSE: The patient underwent left total knee arthroplasty without complication. She tolerated the procedure well and was discharged to recovery room in stable condition. Her postoperative course was relatively uneventful. Her postoperative pain was reasonably well controlled with a combination of spinal anesthesia, adductor canal block, intraoperative joint injection, IV, and oral pain medications. She was started on aspirin for DVT prophylaxis. She also utilized KIMBERLY stockings and SCDs for additional prophylaxis. Her H&H was stable and did not require transfusion. A medical consult was asked for to assist in her postoperative medical management. Again, the patient did not have any significant postoperative medical issues. Her surgical drain was discontinued on postoperative day 1. Her surgical dressing will remain in place for approximately 7 days postoperative. She tolerated postoperative physical therapy reasonably well where she was bending her knee and ambulating appropriately. She was discharged home on postop day 1. She will continue her physical therapy as an outpatient. She will continue her aspirin for DVT prophylaxis and follow up in our office in approximately 10-14 days for initial postop evaluation.
== END 2017-03-11 17:30 | disposition home or self-care (01) | DRG 470 ==
LOC: C.ACU 09:14 → C.3E 09:33 → ENRESERV 15:16
PROC: 0SRD0J9 Replacement of Left Knee Joint with Synthetic Substitute, Cemented, Open Approach (ICD-10-PCS; principal; 2017-03-10 11:00)
DX: M17.12 Unilateral primary osteoarthritis, left knee (principal); E03.9 Hypothyroidism, unspecified; E66.9 Obesity, unspecified; I10 Essential (primary) hypertension; I95.81 Postprocedural hypotension; R73.9 Hyperglycemia, unspecified; Z68.37 Body mass index [BMI] 37.0-37.9, adult